=== PATIENT | male | born 1950 | race Caucasian/White ===

== ENCOUNTER 2020-04-24 09:16 | Inpatient (IN) | payer MEDICARE ==
[~2020-04-24] VITALS: Ht 175.3 cm; Wt 72.0 kg
--- NOTE | 2020-04-24 12:37 | EKG ---
[facility] [address] [facility] [place] [address] Signed Sinus rhythm with marked sinus arrhythmia with 1st degree AV block with premature ventricular complexes or fusion complexes Inferior infarct , age undetermined Marked ST abnormality, possible anterolateral subendocardial injury Abnormal ECG No previous ECGs available Confirmed by HEATH BERTRAND MD ([id number]) on 04/24/2020 12:37:22 PM Electronically Signed By: HEATH BERTRAND MD 04/24/20 1237 PATIENT NAME: ALEXNADRIA POLLOCK Electrocardiogram DATE OF : 46 PHYSICIAN: HEATH BERTRAND MD REPORT #: [id number] REPORT IS CONFIDENTIAL AND NOT TO BE RELEASED WITHOUT AUTHORIZATION
[2020-04-24] MEDS ORDERED: GLUCOPHAGE500 MG PO (14:04)
[2020-04-24] MEDS ORDERED: TRAZODONE HCL100 MG PO (14:04)
[2020-04-24] MEDS ORDERED: DEPAKOTE125 MG PO (14:05)
[2020-04-24] MEDS ORDERED: KLOR-CON M1010 MEQ PO (14:05)
[2020-04-24] MEDS ORDERED: ABILIFY5 MG PO (14:06)
[2020-04-24] MEDS ORDERED: DIGOX125 MCG PO (14:06)
[2020-04-24] MEDS ORDERED: LOPRESSOR HCT1 EAC1 PO (14:07)
[2020-04-24] MEDS ORDERED: METOPROLOL SUCC50 MG PO (14:07)
[2020-04-24] MEDS ORDERED: MORPHINE SULFAT15 M1 PO (14:07)
[2020-04-24] MEDS ORDERED: LASIX80 MG PO (14:08)
[2020-04-24] MEDS ORDERED: ISOSORBIDE MONO30 MG PO (14:08)
[2020-04-24] MEDS ORDERED: XANAX1 MG PO (14:09)
[2020-04-24] MEDS ORDERED: JANTOVEN4 MG PO (14:09)
[2020-04-24] MEDS ORDERED: DIGITEK250 MCG PO (14:09)
[2020-04-24] MEDS ORDERED: RA P-COL RITE1 EACH PO (14:10)
[2020-04-24] MEDS ORDERED: PRAVACHOL20 MG PO (14:10)
[2020-04-24] MEDS ORDERED: TESTOSTERO200 MG/1 M IM (15:28)
[2020-04-24] MEDS ORDERED: MIRTAZAPINE30 M1 PO ×2 (15:31→16:45)
[2020-04-24] MEDS ORDERED: DEXAMETHASONE0.5 MG PO (15:31)
--- NOTE | 2020-04-24 15:55 | NUR ---
PATIENT ARRIVED TO [facility] VIA WHEELCHAIR. PATIENT IMMEDIATELY AMBULATED TO BATHROOM WITH STANDBY ASSIST TO VOID.
[2020-04-24] MEDS ORDERED: METOLAZONE5 MG PO (16:44)
--- NOTE | 2020-04-24 17:17 | NUR ---
PATIENT ADMITTED TO MED SURG. PATIENT IS SLEEPING, IVF INFUSING, ENEMA PENDING. DAUGHTER IN ROOM WITH PATIENT.
--- NOTE | 2020-04-24 17:47 | NUR ---
PHARMACY IN TO TALK WITH DAUGHTER AND PATIENT.
--- NOTE | 2020-04-24 18:05 | NUR ---
ENEMA GIVEN, APPROXIMATELY 1/2 OF THE FLEET BOTTLE INSTILLED, THE REMAINDER IMMEDIATELY RAN OUT.
[2020-04-24] MEDS ORDERED: MIRALAX119 GM PO (18:06)
[2020-04-24] MEDS ORDERED: CYANOCOBAL1000 MCG/M IM (18:08)
[2020-04-24] MEDS ORDERED: NITROSTAT0.4 MG SL (18:08)
--- NOTE | 2020-04-24 18:09 | NUR ---
MED REC COMPLETE
[2020-04-24] MEDS ORDERED: MORPHINE IV (18:16)
--- NOTE | 2020-04-24 18:33 | NUR ---
SUPPOSITORY GIVEN. NO FORMED STOOL NOTED AT THE RECTUM.
--- NOTE | 2020-04-24 20:28 | NUR ---
Pt in bed, room air, hob elevated to his comofrt, chin to his chest and haunched back, chronic for him. c/o feeling nauseated, zofran ODT given. On room air sats 42-74 on room air with nose cpox. O2 placed on 2L NC, sats 88%, placed on 3L and stayed at 93-94%, denies sob. chronic cyanotic looking fingers and toes, poor capillary refill. Lungs clear, dim at bases. LE red colored and trace of edema slightly pitting 1+, toenails mycotic, fair, scaly and thickened skin. wearing attends. SL RAC, IVF infusing w/o problems. LAC. family in room.
--- NOTE | 2020-04-24 21:07 | NUR ---
CALL LIGHT ANSWERED. pt INCONTINENT OF STOOL. SBA WITH FWW TO RESTROOM FOR LARGE MIXED STOOL, LIQUID WITH LARGE FORMED PIECES OF STOOL AND VOID. ATTENDS CHANGED. PARTIAL BED BATH COMPLETE WITH WARM WIPES. pt WITH VERY POOR POSTURE, REQUIRING SOME COACHING WITH STAYING WITH WALKER. DAUGHTER AT BEDSIDE. CALL LIGHT IN REACH.
--- NOTE | 2020-04-24 21:45 | NUR ---
PT LORIE AREA FURTHER CLEANED. ASSISTED TO REPOSITION IN BED. PATIENT AND FAMILY NOTIFIED THAT ES WILL COME IN TO MOP FLOOR, AGREEABLE. KENNY OZUNA IN ROOM FOR SCHEDULED MEDICATION ADMINISTRATION.
--- NOTE | 2020-04-24 22:02 | NUR ---
MEDICATIONS ADMINISTERED FOR PRIMARY RN, PT REPOSITIONED IN BED WITH PILLOWS, PT FREQUENTLY ADJUSTING IN BED AND STANDING UP AT BEDSIDE FOR PAIN RELIEF. PT DAUGHTER ASKS THIS RN ABOUT PAIN MEDICATION, THIS RN DISCUSSED WITH PRIMARY RN STEPHEN MITCHELL NOW IN ROOM TO DISCUSS PLAN OF CARE. IVF INFUSING WNL, CALL LIGHT IN REACH, NO OTHER NEEDS AT THIS TIME.
--- NOTE | 2020-04-24 22:46 | NUR ---
DR BERTRAND NOTIFIED VERBALLY ABOUT O2 REQUIREMENTS FOR PT AND OF FAMILY CONCERNS OVER PT BEING ONLY ON TYLENOL AND NOT MORE HEAVY PAIN MEDS AND OF PT HAVING A ALRGE BM. STATED HER CONCERNS OVER NOT BEING ABLE TO GET A HOLD OF A MEDICAL PROVIDER OR PTS FAMILY IN [place]. AND CONCERNS OVER PAIN PUMP NO NEW ORDERS
--- NOTE | 2020-04-24 23:23 | NUR ---
pt w )[address], no distress noted, laying in bed hounchedback position. resting off and on. Many issies r/t pts care discussed with jensenher and pt, mainly pain med, constipation, abnormal labs, pt care after dc, need for past medical records and past medical hx, med, housing and overall care of pt whether pt decides to stay in [place] or back to [place] . Receptive, continue to reinforce current care and why at this time. Pt calm.
--- NOTE | 2020-04-25 00:29 | NUR ---
In bed, hob elevated to sitting position, head bent down to chin as usual, O2 3L NC inplace. calm, quiet, eyes closed, no resp distress. ivf infusing, legs elevated
--- NOTE | 2020-04-25 01:50 | NUR ---
IN BED SITTING POSITION, O2 IN PLACE, EYES CLOSED, NO DISTRESS, IVF INFUSING, NO FURTHER C/O PAIN OR N/V/DRY HEAVING
--- NOTE | 2020-04-25 03:12 | NUR ---
pt standing edge of bed, iv tube pulling. was incontinent of urine, helpwd to br with 1pa/fww, hounshed back slow gait, voided some more, med dark yellow urine, back to bed, tolerated well, sats on retunr on room air nose prong CPOX was 88%, O2 back on at 3L, sats 97-99%, O2 weaned down to 2L NC sats 94-96%. Reposioned back on bed sitting position, pillows on back, helped with repositioning, legs elevated. tolerated fluids well, no further c/o n/v or dry heaving. call light at hands reach.
--- NOTE | 2020-04-25 04:40 | NUR ---
Awakes easily, medicated with tylenol per 8/10 back and generalized pain, stated "Tylenol does not do anything for me". Reposions self in bed, intermittently resting with eyes closed in bed on a sitting position. IVF infusing, O2 2L NC
--- NOTE | 2020-04-25 05:04 | NUR ---
Pt was placed on O2 3L at begining of shift sats 74% on room air. currently on 2L NC sats 94%, nasal probe CPOX use.pt has severe kyphosis and has chronic neck bending w chin touchng chest, walks in a haunched back manner, 1pa/fww. red, warm le scaly, dusky fingers and cyanotic toenail. Has a large bm earlier on shift, incontinent of urine, plus has walked to br , tolerated wel. Has Morphine indwelling pump, chronic pete and generalized pain, takes Tylenol x2 with fair to poor relief. MD aware, Daughter had many concerns r/t pts meds, care and unknown home needs after DC. Reassured and instructed to call CM and senior services for furthre help, stated understanding Dr Chowdhury notified,. IVF infusing w/o problems, tolerating fluids well. Was medicated x1 with zofran per dry heaving, no further episodes.
--- NOTE | 2020-04-25 06:46 | NUR ---
Pt up to chair, 1PA/fww, tolerated well, then up to br, passed large amounts of rectal gas, had smear of bm, voided in toilet and was incontinent of small amount of urine. Back to chair, hob elevated to his comofrt, legs elevated, ivfi infusing, O2 2L NC, tolerated well, no sob, tele#[address], "state that he is ready to go home as nothing is comfortable due to back pain
--- NOTE | 2020-04-25 06:56 | NUR ---
standing up edge of recliner couch, voided in urinal , back to chair, call light and fluids at bedside
--- NOTE | 2020-04-25 07:47 | NUR ---
PATIENT WAS SITTING IN CHAIR BUT NOW TO BED FOR EKG TO BE DONE, 1PA FWW. RT IN ROOM AT THIS TIME TO EKG. CALL LIGHT IN REACH. NO FURTHER NEEDS AT THIS TIME.
--- NOTE | 2020-04-25 07:50 | NUR ---
CALL TO DR. BERTRAND 0740 WITH DIGOXIN AND TROPONIN LAB VALUES. STAT EKG DONE AT 0750.
--- NOTE | 2020-04-25 07:54 | NUR ---
[address] BERTRAND WITH EKG RESULTS, PATIENT DENIES DISCOMFORT AT THIS TIME. NO FURTHER ORDER AT PRESENT.
--- NOTE | 2020-04-25 08:02 | NUR ---
PT AWAKE UP IN CHAIR AT TIME OF REPORT. ELEVATED LAB VALUES REPORTED TO DR BERTRAND PT TO BED FOR EKG ORDERED BY MD. PT DENIES DISCOMFORTS OR NEEDS OF AT THIS TIME. RESTING QUIETLY WITH NO SIGNS OF DISTRESS. CALL LIGHT IN REACH.
--- NOTE | 2020-04-25 09:38 | NUR ---
PATIENT SITTING UP IN BED, RN IN ROOM. PATIENT SLOWLY WORKING ON BREAKFAST. WARM WASHCLOTH GIVEN. CALL LIGHT IN REACH. NO FURTHER NEEDS AT THIS TIME.
--- NOTE | 2020-04-25 09:54 | NUR ---
PT REMOVES 02, VITALS TAKEN. SATS ON RA MID 90'S TO 100% PT TO REMAIN ON RA WILL SPOT CHECK 02 FREQUENTLY
--- NOTE | 2020-04-25 10:43 | NUR ---
PT UP TO THE CHAIR PER REQUEST. SITTING NOW WITHOUT C/O
--- NOTE | 2020-04-25 12:27 | NUR ---
PT UP AMBULATING THE MEZA WITH HIS DAUGHTER.
--- NOTE | 2020-04-25 15:04 | NUR ---
PT PLAYING CARDS WITH HIS DAUGHTER THEN GOES TO WALK AGAIN THEN RETURNS TO THE ROOM TO THE CHAIR
--- NOTE | 2020-04-25 15:35 | NUR ---
PAIN MEDS ADMINISTERED A SHORT TIME AGO PT REPORTS FEELING BETTER ALREADY
--- NOTE | 2020-04-25 18:14 | NUR ---
PATIENT UP TO BATHROOM AND BACK TO CHAIR, 1PA FWW. PATIENT HAD INCONT, SOFT BM. LORIE CARE DONE AND NEW ATTENDS IN PLACE. PATIENT NOW IN CHAIR WATING TV. CALL LIGHT IN REACH. NO FURTHER NEEDS AT THIS TIME.
--- NOTE | 2020-04-25 19:59 | NUR ---
POWER SYSTEM DISPATCHER ROUNDING NOTE. PT RESTING IN CHAIR. IV PUMP ALARMING, EDUCATION PROVIDED. PT ENCOURAGED TO KEEP ARM STRAIGHT, HE AGREES. PT DENIES QUESTIONS OR CONCERNS AT THIS TIME. CALL LIGHT IN REACH. WHITE BOARD UPDATED.
--- NOTE | 2020-04-25 20:31 | NUR ---
pt in chair, stand up to edge of chair, and then sits down. On room air, probe cpox 92%, Lungs much improved from yesterday. Medicated with Oxycontin 15mg po per 5/10 generalized and back pain. Tolerating fluids well, no c/o n/v or dry heaving, sl patent and ivf infusing
--- NOTE | 2020-04-25 21:39 | EKG ---
[facility] [address] [place] [address] \T\ T wave abnormality, consider inferior ischemia Abnormal ECG When compared with ECG of 24-APR-2020 10:21, Atrial fibrillation has replaced Sinus rhythm ST less depressed in Anterior leads T wave inversion less evident in Anterolateral leads QT has shortened Confirmed by HEATH BERTRAND MD ([id number]) on 04/25/2020 9:38:51 PM Electronically Signed By: HEATH BERTRAND MD 04/25/20 2139 PATIENT NAME: ALEXANDRIA POLLOCK Electrocardiogram DATE OF : 46 PHYSICIAN: HEATH BERTRAND MD REPORT #: [id number] REPORT IS CONFIDENTIAL AND NOT TO BE RELEASED WITHOUT AUTHORIZATION
--- NOTE | 2020-04-25 22:33 | NUR ---
In recliner chair, "Kory as comfortable as I can be", repositions self in chair., IVF infusing. call light at bedside
--- NOTE | 2020-04-26 00:27 | NUR ---
Sitting in chair, dozing off, stand up to edge of chair and then sits down. repositions self. no further episodes of n/v or dry heaving. ivf infusing, call light at bedside, on room air. erythema of LE still present
--- NOTE | 2020-04-26 02:29 | NUR ---
PT EYES CLOSED, NO RESP DISTRESS, IN RECLINER CHAIR, CHIN TO CHEST. LEGS IN DEPENDENT POSITION, WARM AND RED. IVF INFUSING, TOLERATING FLUIDS WELL, NO N/V, HAS VOIDED USING URINAL.
--- NOTE | 2020-04-26 06:10 | NUR ---
Pt in recliner chair, naps off and on this shift. stands edge of recliner chair and then sits down very frequently this shift. still walking on haunchedback like, chin to chest . Tolerating fluids very well, no emesis. On room air, had one small bm, uses urinal, and was incontinent of urine x1, skin care done. duskiness of fingers and toes present, mycotic toenails, red warmth le, edema at ankles, legs have been on a dependent posion all shift, encouraged to elevaste legs. has been receiving MS contin with fair pain relief, due to chronic back and generalized pain. ivf infusing w/o problems, no c/o adversereaction to iv abx, receiving iv solucortef. Mind [place] Tele#[address], afib w occassional multifor PVC's, no c/o cp or sob.
--- NOTE | 2020-04-26 07:46 | NUR ---
PT RESTING EYES CLOSED AT TIME OF SHIFT EXCHANGE. UP IN THE CHAIR NOW WASHING HIS FACE, PERSONAL CARE ITEMS PROVIDED. PT RESPOPNDS "PRETTY GOOD" WHEN ASKED HOW HIS PAIN LEVEL IS. GIVES NUMBER OF 7/10 STATES IT NEVER GOES AWAY BUT IS BETTER TODAY. CALL LIGHT IN REACH FRESH H20 PROVIDED
--- NOTE | 2020-04-26 09:52 | NUR ---
PT UP IN THE CHAIR AFTER CLEAR LIQUID BREAKFAST. WOUND WASH TO OPEN AREAS ON BOTTOM, BARRIER CREAM APPLIED. PT EDUCATION PROVIDED AT LENGTH PT VERBALIZES UNDERSTANDING AND AGREES DAUGHTER CAN ASSIST HIM HE CAN'T REACH TO WASH LIKE THAT. DR BERTRAND IN TO SEE PT HE DENIES NEEDS OR CONCERNS STATES HE WANTS TO GO HOME. SHE REPORTS LAB IMPROVEMENTS AND LIKELIHOOD OF DC TOMORROW.
--- NOTE | 2020-04-26 10:01 | NUR ---
PATIENT IN CHAIR WATCHING TV. WARM WASHCLOTH GIVEN. ADVANCED PATIENTS DIET, BREAKFAST ORDERED. CALL LIGHT IN REACH. NO FURTHER NEEDS AT THIS TIME.
--- NOTE | 2020-04-26 11:56 | NUR ---
PT REMAINS UP IN THE CHAIR, STANDS INTERMITTANTLY FOR COMFORT. FAMILY IN TO SEE HIM EARLIER. CALL LIGHT AND FRESH H20 AT CHAIRSIDE DENIES OTHER NEES OF
--- NOTE | 2020-04-26 13:44 | NUR ---
PT REMAINS UP IN THE CHAIR, DAUGHTER IS PRESENT. UPDATE PROVIDED R/T CONDITION AND PLAN OF CARE. SHE REMARKS HOW MUCH BETTER PT APPEARS TODAY
--- NOTE | 2020-04-26 14:30 | NUR ---
DEMONSTRATED FOR DAUGHTER HOW TO WASH PT'S BOTTOM WITH WOUND WASH SPRAY BOTTLE. DISCUSSED THE NEED FOR UNDERGARMENT CHANGES AND BARRIER CREAM TO PREVENT WORSENING OF WOUND. ALL QUESTIONS ANSWERED
--- NOTE | 2020-04-26 14:53 | NUR ---
PATIENT WAS UP IN CHAIR, DAUGHTER IN ROOM, PATIEINT WENT ON A WALK AMBULATED ABOUT A HALF OF A LAP, PATIENT CAME BACK TO ROOM, ORDERED HIS DINNER, AND VITAL SIGNS AND INTAKE AND OUTPUT WERE CHARTED, CALL LIGHT IN REACH, PATIENT HAD NO OTHER NEEDS AT THIS TIME.
--- NOTE | 2020-04-26 14:54 | NUR ---
PT AMBULATES THE MEZA WITH DAUGHTER WELL TOLERATED
--- NOTE | 2020-04-26 18:16 | NUR ---
PT REMAINS UP IN THE CHAIR VISITING WITH DAUGHTER. HAS WALKED THE HALLS SEVERAL TIMES, STANDS FOR A TIME RETURNS TO SITTING. ATE VERY LITTLE OF EVENING MEAL REFUSES OFFERS OF ALTERNATIVES.
--- NOTE | 2020-04-26 18:59 | NUR ---
PATIENT IN CHAIR, DAUGHTER IN ROOM. CALL LIGHT IN REACH. NO FURTHER NEEDS AT THIS TIME.
--- NOTE | 2020-04-26 19:41 | NUR ---
PT IN CHAIR, LEGS DEPENDENT POSITION. ROOM AIR, IVF INFUSING, FAMILY IN ROOM
--- NOTE | 2020-04-26 23:27 | NUR ---
In chair, denies sob, states he feels better, IVF infusing, call light and fluids at bedside. Continues to stand at edge of chair and back, repositions self
--- NOTE | 2020-04-27 00:57 | NUR ---
UP TO BED FROM CHAIR. IVF INFUSING, TOLERATED WELL, INCONTINENT OF URINE, SKIN CARE FRESH ATTENDS IN PLACE, MUCH IMPROVING ERYTHEMA AND REDNESS OF LE, ELEVATED. CALL LIGHT AND FLUID AT BEDSIDE
--- NOTE | 2020-04-27 01:42 | NUR ---
IN BED, ON ROOM AIR, LAYING ON L SIDE, CALM, NO S/SX DISTRESS. CALL LIGHT AND FLUIDS AT BEDSIDE. IVF INFUSING
--- NOTE | 2020-04-27 02:11 | NUR ---
PT IN BED, HOB ELEVATED. C/O HEAD FEELING DIZZY, AND BACK PAIN, MEDICATED WITH TYLENOL 650MG PO AND ZOFRAN SL. IVF INFUSING
--- NOTE | 2020-04-27 04:03 | NUR ---
uSED CALL LIGHT, IN BED, UP TO BR, VOIDED, PASSED GAS, NO BM. UP TO STANDING SCALE, WEIGHT 77.7KG, APPEARS TO HAVE GAINED 1KG. bACK TO BED, 1PA/FWW. IVF INFUSING, NO SOB NOTED, TOLERATED VERY WELL
--- NOTE | 2020-04-27 07:27 | NUR ---
PT RESTING EYES CLOSED AT SHIFT EXCHANGE, LEFT UNDISTURBED.
--- NOTE | 2020-04-27 08:12 | NUR ---
PT UP TO THE CHAIR AND MORNING MEAL ORDERED. STATES HE FEELS WELL TODAY, HOPES TO GO HOME. PLANS FOR SHOWER AFTER MORNING MEAL
--- NOTE | 2020-04-27 09:03 | NUR ---
REQUESTED RECORDS BASED OFF OF THE PATIENTS MEDICATION LIST OF PROVIDERS. DR CARLIN IS AT A [facility] PHONE NUMBER IS [phone] AND FAX [phone]. DR RON ECHAVARRIA HAS SEEN THE PATIENT THREE TIMES THIS YEAR. HIS PHONE NUMBER IS [phone] AND FAX NUMBER IS [phone].
--- NOTE | 2020-04-27 10:29 | NUR ---
RN HELPED PATIENT WITH SHOWER. PATIENT NOW IN CHAIR, RN STILL IN ROOM. NO VOID, RN AWARE. CALL LIGHT IN REACH. NO FURTHER NEEDS AT THIS TIME.
--- NOTE | 2020-04-27 10:37 | NUR ---
PT EATS A FAIR AMOUNT OF MORING MEAL, BEST HE'S EATEN SINCE FOODS WERE ENCOURAGED. PT TO THE BATHRROM FOR SHOWER AND PERSONAL CARE, WELL TOLERATED. REINFORCED SKIN CARE NEEDS FOR CLEANSING, BARRIER CREAM, AND PRESSURE RELIEF. PT VERBALIZES UNDERSTANDING. RETURNS TO CHAIR TALKING ON THE PHONE NOW.
[2020-04-27] MEDS ORDERED: MELATONIN10 M2 PO (11:24)
--- NOTE | 2020-04-27 12:24 | NUR ---
PT DAUGHTER HERE HE REMAINS UP IN THE CHAIR EATING NOON MEAL
--- NOTE | 2020-04-27 13:43 | NUR ---
YUE RN WITH D/C PLANNING CALLED TO NOTIFY THAT PT AND FAMILY WOULD LIKE TO DISCUSS RESOURCES AVAILABLE TO THEM IN THE COMMUNITY HE IS PLANNING TO MOVE HERE.
[2020-04-27] MEDS ORDERED: WARFARIN SODIUM1 MG PO (13:58)
--- NOTE | 2020-04-27 13:59 | NUR ---
DR BERTRAND IN TO SEE PT, DAUGHTER IS PRESENT. SPOKE AT LENGTH REGARDING PT MEDICAL CONDITION AND NEED FOR BOTH F/U AND MONITORING. UNDERSTANDING VERBALIZED. DC MACHINE REPAIRER SPEAKING WITH PT AND DAUGHTER NOW TO ASSIST WITH MEDICAL NEEDS
--- NOTE | 2020-04-27 15:00 | NUR ---
SPOKE WITH PATIENT AND DAUGHTER LENNY IN ROOM. PATIENT FLEW UP TO VISIT FAMILY BEFORE THANKSGIVING. HE LIVES IN [place] ALONE. HE HAS SISTER LIVES NEXT DOOR TO HIM AND SHE HELPS WITH MEDS, SHOPPING ETC. HE HAS PCP AND SPECIALITY DOCTORS THERE. DAUGHTER STATES THEY FEEL HE NEEDS MORE SUPPORT NOW AND HE STATES HE IS THINKING OF MOVING HERE. THEY HAVE QUESTIONS REGARDING WHAT HE WOULD NEED TO DO TO FIND RESOURCES HERE. DISCUSSED I WILL GIVE THEM CHW CONTACT INFO FOR THEM TO CALL IF HE DECIDES TO STAY HERE. I SUGGESTED THE FIRST THING THEY DO IS FIND A PCP HE HAS MANY HEALTH CHALLENGES. I GAVE THEM NAMES AND CONTACT NUMBERS FOR THREE CLINICS IN [facility] WHO ARE ACCEPTING NEW PATIENTS. DAUGHTER STATES SHE HAS A PSEICE-DM-SIW WHO WORKS AT [facility] AND THEY ALSO HEARD DR SARABIA WAS GOOD. I DISCUSSED THAT WHEN THEY DECIDE WHO TO USE, THEY WILL NEED TO GET PATIENTS RECORDS FROM [place] SO NEW PCP WOULD HAVE HIS HISTORY. WE DISCUSSED THAT HOUSING IN [place] CAN BE A CHALLENGE. PATIENT LIVES ON FIXED INCOME. DAUGHTER STATES HE PROBABLY WILL NEED PRISON HOUSING OR LOW INCOME HOUSING. SHE PLANS ON HIS STAYING WITH HER FOR NOW. PATIENT STATES HE MAY FLY HOME FIRST HE NEEDS TO GET HIS CAR AND THINGS. THEY WENT BACK AND FORTH ABOUT THIS. GAVE THEM OUR OFFICE CONTACT NUMBER AND ENCOURAGED THEM TO CALL OUR CHW OR OFFICE WHEN THEY DECIDE WHEN HE WILL BE HERE PERMAMENTLY AND WE CAN HELP GUIDE THEM WITH RESOURCES. PATIENT PLANS TO RETURN HOME WITH DAUGHTER TODAY AT DISCHARGE AND HE HAS A WALKER THERE TO USE. HE FEELS SAFE TO GO HOME WITH THEM. WE DISCUSSED THAT HE WILL NEED REFERRAL TO A PAIN CLINIC TO DEAL WITH HIS CHRONIC PAIN. WE DISCUSSED THERE IS ONE IN [facility]. DAUGHTER STATES THAT SHOULD WORK, THEY CAN TAKE HIM IF NEEDED. NO FURTHER QUESTIONS AT THIS TIME.
== END 2020-04-27 15:20 | disposition home or self-care (01) | DRG 683 ==
LOC: ED 09:16 → MS 15:16
PROVIDERS: ADMIT Internal Medicine; ATTEND Internal Medicine
DX: N17.9 Acute kidney failure, unspecified (principal); L03.116 Cellulitis of left lower limb; L03.115 Cellulitis of right lower limb; E27.40 Unspecified adrenocortical insufficiency; E87.6 Hypokalemia; Z20.828 Contact with and (suspected) exposure to other viral communicable diseases; T46.0X5A Adverse effect of cardiac-stimulant glycosides and drugs of similar action, initial encounter; I48.91 Unspecified atrial fibrillation; I50.9 Heart failure, unspecified; E86.0 Dehydration; M54.5 Low back pain; G89.29 Other chronic pain; K56.41 Fecal impaction; F31.9 Bipolar disorder, unspecified; Z87.891 Personal history of nicotine dependence; Z79.899 Other long term (current) drug therapy; Z79.01 Long term (current) use of anticoagulants; Z79.84 Long term (current) use of oral hypoglycemic drugs; Z79.891 Long term (current) use of opiate analgesic; Z79.52 Long term (current) use of systemic steroids
CPT/HCPCS: 36415; 51798; 71045; 74177; 80048; 80053; 80162; 81001; 83605; 83690; 83735; 83880; 84100; 84484; 85025; 85610; 93005; 93010; 99285-25; C9113; C9803; J0690; J1720; J1815; J2270; J2405; J2550; J2765; J3480; J7030; J7120; Q9967; U0003

== ENCOUNTER 2020-10-21 16:46 | Emergency (ER) | payer MEDICARE ==
[~2020-10-21] VITALS: Ht 175.3 cm; Wt 77.6 kg
[~2020-10-21 16:46] MED LIST: ABILIFY10 MG PO; CYANOCOBAL1000 MCG/M IM; DEPAKOTE125 MG PO; DEXAMETHASONE0.5 MG PO; DIGITEK250 MCG PO; DIGOX125 MCG PO; FUROSEMIDE20 MG PO; GLUCOPHAGE500 MG PO; ISOSORBIDE MONO30 MG PO; JANTOVEN4 MG PO; KLOR-CON M1010 MEQ PO; LASIX80 MG PO; LOPRESSOR HCT1 EAC1 PO; MELATONIN10 M2 PO; METOLAZONE5 MG PO; METOPROLOL SUCC50 MG PO; MIRALAX119 GM PO; MIRTAZAPINE30 M1 PO; MORPHINE IV; MORPHINE SULFAT15 M1 PO; NITROSTAT0.4 MG SL; PRAVACHOL20 MG PO; RA P-COL RITE1 EACH PO; TESTOSTERO200 MG/1 M IM; TRAZODONE HCL100 MG PO; VALIUM10 MG PO; WARFARIN SODIUM1 MG PO; WARFARIN SODIUM4 MG PO
--- OUTSIDE RECORDS SUMMARY | 2020-10-21 16:48 | XMS ---
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 Nadir has no Care Guidelines for this patient. Daphney VISIT COUNT (12 MO.) 2 AMARJIT Tomas TOTAL 2 NOTE: Visits indicate total known visits. ED/C VISIT TRACKING (12 MO.) 10/21/2020 16:46 AMARJIT [facility] [place] TYPE: Emergency COMPLAINT: - WOUND CHECK 04/24/2020 09:17 [facility] TYPE: Emergency COMPLAINT: - WEAKNESS, VOMITING INPATIENT VISIT TRACKING (12 MO.) 04/24/2020 15:16 AMARJIT [facility] [place] TYPE: Medical Surgical COMPLAINT: - HYPOKALEMIA CONSTIPATION DIAGNOSES: - Cellulitis of left lower limb - Unspecified adrenocortical insufficiency - Fecal impaction - Adverse effect of cardiac-stimulant glycosides and drugs of similar action, initial encounter - Cellulitis of left lower limb - Hypokalemia - Adverse effect of cardiac-stimulant glycosides and drugs of similar action, initial encounter - Fecal impaction - Dehydration - Contact with and (suspected) exposure to other viral communicable diseases - Cellulitis of right lower limb - Bipolar disorder, unspecified - Other manager special events (current) drug therapy - 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 - Other chronic pain - Personal history of nicotine dependence - FDC (current) use of anticoagulants - FDC (current) use of oral hypoglycemic drugs - Other chronic pain - Personal history of nicotine dependence - Low back pain - Bipolar disorder, unspecified - Heart failure, unspecified - FDC (current) use of systemic steroids - Contact with and (suspected) exposure to other viral communicable diseases - Cellulitis of right lower limb - Other shelter (current) drug therapy - Acute kidney failure, unspecified - Heart failure, unspecified - Unspecified atrial fibrillation - Low back pain - Dehydration - business machines teacher (current) use of systemic steroids - Unspecified adrenocortical insufficiency - business machines teacher (current) use of anticoagulants - Acute kidney failure, unspecified - Unspecified atrial fibrillation - business machines teacher (current) use of oral hypoglycemic drugs - 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
[2020-10-21] MEDS ORDERED: CEPHALEXIN500 M1 PO (18:54)
--- NOTE | 2020-10-22 07:02 | EKG ---
[facility] [address] [place] [address] Signed Atrial fibrillation with rapid ventricular response Cannot rule out Anterior infarct , age undetermined Abnormal ECG When compared with ECG of 25-APR-2020 07:38, Vent. rate has increased BY 68 BPM QRS duration has decreased Minimal criteria for Anterior infarct are now present ST no longer depressed in Lateral leads T wave inversion no longer evident in Inferior leads T wave inversion no longer evident in Anterior leads Confirmed by HEATH BERTRAND MD ([id number]) on 10/22/2020 7:02:37 AM Electronically Signed By: HEATH BERTRAND MD 10/22/20701 PATIENT NAME: ALEXANDRIA POLLOCK Electrocardiogram DATE OF : 46 PHYSICIAN: HEATH BERTRAND MD REPORT #: [id number] REPORT IS CONFIDENTIAL AND NOT TO BE RELEASED WITHOUT AUTHORIZATION
== END 2020-10-21 20:20 | disposition home or self-care (01) ==
LOC: ED 16:46
DX: L03.116 Cellulitis of left lower limb (principal); I48.91 Unspecified atrial fibrillation; Z87.891 Personal history of nicotine dependence; Z91.030 Bee allergy status; Z79.899 Other long term (current) drug therapy; Z79.01 Long term (current) use of anticoagulants; Z79.84 Long term (current) use of oral hypoglycemic drugs; Z79.891 Long term (current) use of opiate analgesic
CPT/HCPCS: 80053; 83605; 85025; 85610; 93005; 93010; 96374; 99283-25

== ENCOUNTER 2021-01-05 15:41 | Inpatient (IN) | payer MEDICARE ==
[~2021-01-05] VITALS: Ht 175.3 cm; Wt 81.0 kg
[~2021-01-05 15:41] MED LIST changes: +CEPHALEXIN500 M1 PO; -PRAVACHOL20 MG PO; +PRAVASTATIN SOD20 MG PO; +REMERON30 MG PO
--- OUTSIDE RECORDS SUMMARY | 2021-01-05 15:44 | XMS ---
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 Daphney VISIT COUNT (12 MO.) 3 AMARJIT Tomas TOTAL 3 NOTE: Visits indicate total known visits. ED/UCC VISIT TRACKING (12 MO.) 01/05/2021 15:41 AMARJIT [facility] [place] TYPE: Emergency COMPLAINT: - WEAKNESS 10/21/2020 16:46 AMARJIT [facility] [place] TYPE: Emergency COMPLAINT: - CELLULITIS DIAGNOSES: - [facility] (current) use of opiate analgesic - Other terminologist (current) drug therapy - Bee allergy status - Unspecified atrial fibrillation - Personal history of nicotine dependence - Cellulitis of left lower limb - [facility] (current) use of anticoagulants - terminologist (current) use of oral hypoglycemic drugs 04/24/2020 09:17 AMARJIT [facility] [place] TYPE: Emergency [...] limb - Bipolar disorder, unspecified - Other long-term (current) drug therapy - terminologist (current) use of opiate analgesic - Other chronic pain - Personal history of nicotine dependence - terminologist (current) use of anticoagulants - terminologist (current) use of oral hypoglycemic drugs - Other chronic pain - Personal history of nicotine dependence - Low back pain - Bipolar disorder, unspecified - Heart failure, unspecified - [facility] (current) use of systemic steroids - Contact with and (suspected) exposure to other viral communicable diseases - Cellulitis of right lower limb - Other terminologist (current) drug therapy - Acute kidney failure, unspecified - Heart failure, unspecified - Unspecified atrial fibrillation - Low back pain - Dehydration - terminologist (current) use of systemic steroids - Unspecified adrenocortical insufficiency - [facility] (current) use of anticoagulants - Acute kidney failure, unspecified - Unspecified atrial fibrillation - terminologist (current) use of oral hypoglycemic drugs - terminologist (current) use of opiate analgesic [email or web address]
[2021-01-05] MEDS ORDERED: HYDROMORPHO (18:29)
[2021-01-05] MEDS ORDERED: FENTANYL (18:29)
--- NOTE | 2021-01-05 20:23 | NUR ---
PT TRANSFERED TO CCU NO COMPLICATIONS
--- NOTE | 2021-01-05 20:38 | EKG ---
[facility] [address] [place] [address] Signed Atrial fibrillation with rapid ventricular response Abnormal ECG When compared with ECG of 21-OCT-2020 17:16, No significant change was found Confirmed by HEATH BERTRAND MD ([id number]) on 01/05/2021 8:38:19 PM Electronically Signed By: HEATH BERTRAND MD 01/05/212037 PATIENT NAME: POLLOCK,ALEXANDRIADWAIN SPANN Electrocardiogram DATE OF : 46 PHYSICIAN: HEATH BERTRAND MD REPORT #: [id number] REPORT IS CONFIDENTIAL AND NOT TO BE RELEASED WITHOUT AUTHORIZATION
--- NOTE | 2021-01-05 21:00 | NUR ---
PT ARRIVED TO ROOM 128 AT 2000 VIA STRETCHER, MOVED TO BED BY DRAW SHEET. PT IS SOMNOLENT, OPENS EYES TO VOICE AND QUICKLY GOES BACK TO SLEEP. LUNGS COARSE AND DIM, BIPAP PLACE ON PT AT 18/4 @50%. HR IRREGULAR, RATE 80-90'S, MADE AWARE OF LOW BP. MORRIS PATENT, CATH CARE PROVIDED. SKIN IS ERA, OPEN AREA TO COCCYX, BARRIER CREAM APPLIED AND OPEN AREA COVERED WITH ALLEVYN, REDNESS TO COCCYX DOES NOT APPEAR TO BE BLANCHING, PT POSITIONED ONTO RIGHT SIDE. PILLOW SUPPORT PROVIDED PT'S SPINE IS KYPHOTIC. REDNESS ALSO NOTED TO GROIN FOLDS, BARRIER CREAM APPLIED. IV SITES INTACT AND PATENT.
--- NOTE | 2021-01-05 23:15 | NUR ---
PT REPOSITIONED TO LEFT SIDE WITH PILLOW SUPPORT. BIPAP REMAINS IN PLACE 23/08 @ 50%. MORRIS EMPTIED. PT REMAINS SOMNOLENT AT THIS TIME.
--- NOTE | 2021-01-06 | NUR ---
BIPAP ALARMING, IN TO ASSESS. PT IS NOW AWAKE AND HAS REMOVED BIPAP. HE IS ORIENTED, BUT FORGETFUL OF DATE. REPORTS 8/10 BACK PAIN, 2MG IV MORPHINE GIVEN AND PT REPOSITIONED IN BED PER REQUEST. LUNGS DIM WITH CRACKLES NOTED, NOW ON 2L O2 VIA NC. HR IRREGULAR, RATE 110-120'S, BP GREATLY IMPROVED NOW THAT PT IS ALERT, SCHEDULED METOPROLOL GIVEN EARLY PREVIOUS DOSE HAD TO BE HELD. BOWEL TONES ACTIVE, DENIES NAUSEA. PERIORBITAL EDEMA UNCHANGED, 1-2+ EDEMA IN BLE. MORRIS PATENT. PT UNCOVERED PER REQUEST, AFEBRILE. DENIES FURTHER NEEDS, CALL LIGHT WITHIN REACH.
--- NOTE | 2021-01-06 02:58 | NUR ---
CB, NO SLIDING SCALE COVERAGE REQUIRED AT THIS TIME. PT HAS REPOSITIONED HIMSELF SUPINE FROM SIDE LYING AND IS CURRENTLY ASLEEP. OXYGEN INCREASED TO 4L FOR SPO2 89%. MORRIS EMPTIED.
--- NOTE | 2021-01-06 04:30 | NUR ---
PT WAS DESATURATING TO 86-88%, IN TO CHECK ON HIM AND NC HAD COME OUT OF NOSE, ONCE BACK IN CORRECT PLACE, SPO2 QUICKLY RETURNED >90%. PT REMAINS ROUSABLE AND IS ORIENTED AT THIS TIME. REPORTS 8/10 BACK AND HEADACHE PAIN, 4MG IV MORPHINE GIVEN. PT REPOSITIONED FURTER ONTO RIGHT SIDE WITH PILLOW SUPPORT. LUNGS SOUND DIM AT THIS TIME, NO CRACKLES HEARD. HR REMAINS IRREGULAR, RATE IN 90'S. MORRIS REMAINS PATENT. NO OTHER CHANGES, PT DENIES FURTHER NEEDS, CALL LIGHT WITHIN REACH.
--- NOTE | 2021-01-06 06:58 | NUR ---
DR. BERTRAND NOTIFIED OF CRITICAL LAB VALUE, PROTIME:40.6
--- NOTE | 2021-01-06 07:30 | NUR ---
REPORT RECIEVED. IS LAYING ON BACK. CURRENTLY ON O2 AT 2 L NC.NO DISTESS NOTED.
--- NOTE | 2021-01-06 08:30 | NUR ---
RT IN ROOM, BIPAP REAPPLIED PATIENT IS LETHARIC. WILL FOLLOW MOST COMMANDS. ASSSSMENT DONE. MORRIS CATH PATENT.
--- NOTE | 2021-01-06 08:31 | NUR ---
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 PLACED BACK ON BIAP AT THIS TIME INÉS WELL WOB OK.
--- NOTE | 2021-01-06 08:45 | NUR ---
DRAW SHEET CHANGED AND PATIENT REPOSITIONED.
--- NOTE | 2021-01-06 09:30 | NUR ---
DR. BERTRAND UPDATED ON PATIENT BP AND AWARE IAN AND MICHELL HELD THIS AM. NO FUTHER ORDERS.
--- NOTE | 2021-01-06 10:40 | NUR ---
repositioned to left side. PATIENT IS MUCH MORE AWAKE. BIPAP OFF.O2 AT 3 L NC APPLIED WITH CO2 MONITORING. C/O BACK PAIN, 11/14. ASSESSMENT DONE AT THIS TIME. PATIENT STATED HE FEELS GOOD AND WANTS TO GO HOME. TALKED WITH PAIENT ABOUT THIS.
--- NOTE | 2021-01-06 11:10 | NUR ---
MORPHINE 4 MG IV GIVEN FOR BACK PAIN.
[2021-01-06] MEDS ORDERED: CLONIDINE HCL0.1 MG PO (12:00)
--- NOTE | 2021-01-06 12:20 | NUR ---
ASSESSMENT DONE. NO CHANGES. OFF BIPAP, ON 3 L NC. IS AWAKE AND FOLLOWING COMMANDS. ORAL CARE GIVEN.
--- NOTE | 2021-01-06 13:20 | NUR ---
BIPAP REAPPLIED, SATS 86-89.
--- NOTE | 2021-01-06 14:45 | NUR ---
2PA TO REPOSITION PATIENT. MORRIS EMPTIED, ORAL CARE PROVIDED. BIPAP REPLACED BY 3LNC PER PATIENT REQUEST.
--- NOTE | 2021-01-06 15:00 | NUR ---
Attempted to call sisterSONIA, phone number is a nonworking number. Obtained information from nurses as they state family members are home sick with covid. Per H&P pt has had mutiple back surgeries and uses a walker. He has an implanted pain pump, CHF, and edema. Daughter assists with meds. I was able to reach his sister SONIA Remy. Pt moved to [place] with his daughter over a year ago as he was unable to care for self. Daughter assists with meds and care. Per sister pt requires substantial care. Pt will return home with daughter on discharge.
--- NOTE | 2021-01-06 15:10 | NUR ---
IN ROOM TO CHECK BS AND ADMINISTER SCHEDULED MEDS. PT AWAKE AND ALERT. ABLE TO SWALLOW SIPS OF WATER AND SOME APPLESAUCE WO DIFF.
--- NOTE | 2021-01-06 15:30 | NUR ---
OOB TO CHAIR WITH ASSIST, TRANSFERS WELL. DENIES DIZZINESS OR SHORTNESS OF BREATH WITH EXERTION.
--- NOTE | 2021-01-06 16:00 | NUR ---
ASSESSMENT DONE. O2 AT 4 L PER NC.
--- NOTE | 2021-01-06 16:08 | NUR ---
ASSESSMENT DONE. OOB TO CHAIR WITH ASSIST. TAKES NC OUT TO WIPE NOSE. O2 SZTS DOWN TO 83-90. DENIES SHORTNESS OF BREATH.
--- NOTE | 2021-01-06 17:45 | NUR ---
sitting up in chair ready to take clear liquids. O2 INCREASED TO 5 L O2 SATS MID 80'S ON 4 LITERS.
--- NOTE | 2021-01-06 18:20 | NUR ---
TOOK CL LIQUIDS WELL. WISHES TO REMAIN IN CHAIR. O2 INCREASED TO 6 L NC O2 SATS, HIGH 80'S. PATIENT DENIES SHORTNESS OF BREATH. HR 120-130. WILL NOTIFY
--- NOTE | 2021-01-06 18:45 | NUR ---
DR. BERTRAND UPDATED ON PATIENT HR. ORDERS RECIEVED TO GIVE 2000 DOSE OF LOPRESSOR 5 MG IV NOW. UPON ENTERING ROOM, PATIENT IS ATTEMPTING TO GET OOB TO BATHROOM, INCONT OF STOOL. ASSISTED TO COMMODE. LOPRESSOR 5 MG IV GIVEN.
--- NOTE | 2021-01-06 19:05 | NUR ---
CONTINUES TO SIT ON COMMODE. HR 102.
--- NOTE | 2021-01-06 20:30 | NUR ---
SHIFT REPORT RECEIVED FROM KENNY GRAF. 6L O2 VIA NC IN PLACE. PT UP TO BSC WITH LYNETTE SAVAGE TO HAVE BM. RETURNED TO BED.
--- NOTE | 2021-01-06 21:40 | NUR ---
ASSESSMENT COMPLETED. PT IS ALERT/ORIENTED, REPORTS 8/10 BACK AND HEADACHE PAIN, PRN MORPHINE GIVEN. LUGNS DIM, 6L O2 VIA NC IN PLACE. HR IRREGULAR, RATE 100-120'S. BOWEL TONES ACTIVE. SKIN IS ERA WITH EDEMA PRESENT. REDNESS TO COCCYX REMAINS, ALLEVYN REMOVED AFTER BEING SOILED. MORRIS PATENT, CATH CARE PROVIDED. IV SITES PATENT AND SALINE LOCKED. BED ALARM SET FOR SAFETY, CALL LIGHT WITHIN REACH.
--- NOTE | 2021-01-06 23:18 | NUR ---
DR. BERTRAND NOTIFIED OF PT'S INCREASED HR: 120-140, OCCASIONALLY UP TO 150. ORDER RECEIVED FOR ONE TIME DOSE OF 5MG IV METOPROLOL, GIVEN NOW. PT REPORTS FEELING COMFORTABLE. MORRIS EMPTIED.
--- NOTE | 2021-01-07 00:30 | NUR ---
ASSESSMENT COMPLETED, UNCHANGED AT THIS TIME. REMAINS ON 6L O2 VIA NC, LUNGS REMAIN DIM. PT POSITIONED ONTO LEFT SIDE WITH PILLOW SUPPORT. MORRIS EMPTIED. PT STATES HE IS COMFORTABLE, DENIES FURTHER NEEDS AT THIS TIME.
--- NOTE | 2021-01-07 02:52 | NUR ---
PT CONTINUES TO SLEEP, NO APPARENT DISTRESS. OXYGEN REMAINS IN PLACE AT 6L. MORRIS PATENT AND EMPTIED. PT REPOSITIONED SELF TO SUPINE IN BED.
--- NOTE | 2021-01-07 04:37 | NUR ---
PT APPEARS TO BE SLEEPING AT THIS TIME, NO APPARENT DISTRESS. RESPIRATIONS EVEN AND UNLABORED, 6L VIA NC IN PLACE.
--- NOTE | 2021-01-07 05:15 | NUR ---
BLOOD DRAWN FOR MORNING LABS FROM LEFT AC IV. PT SLEEPING, BUT EASILY ROUSABLE. DENIES DISCOMFORT. TIPPED ONTO LEFT SIDE WITH PILLOWS. MORRIS EMPTIED.
--- NOTE | 2021-01-07 07:34 | NUR ---
REPORT RECEIVED FROM KENNY BLAKE. PT RESTING IN BED WITH EYES CLOSED. O2 AT 92% ON 6L O2 BY NC. RESPIRATIONS EVEN, SHALLOW, BUT UNLABOED. PT ALLOWED TO REST. CALL LIGHT WITHIN REACH. BED RAILS UP.
--- NOTE | 2021-01-07 09:00 | NUR ---
MORNING ASSESSMENT AND MEDICATION DUE. PT RESTING IN BED WITH EYES CLOSED. AWAKENS TO VOICE. PT ALERT AND ORIENTED TO ALL. REPORS 8/10 PAIN BACK WITH A BASELINE OF 6-7/10. SEE MAR FOR MEDICATON GIVEN. PT DENIES NAUSEA. 1 PERSON ASSIST UP TO CHAIR. PT SHUFFLES, BUT IS ABLE TO REPOSITION SELF. OXGYEN SATRUATIONS REMAIN ABOVE 90% ON 5L O2 BY NC. CLEAR LIQUIDS PROIVDED, BLOOD SUGAR 83, REGULAR JELLOW AND JUICE GIVEN. PT DENIES ADDITIONAL REQUESTS OR COMPLAINTS. CALL LIGHT WITHIN REACH. PT REMAINS UP TO CHAIR, EATING JELLOW AND FLUIDS. MORRIS CATHETER SECURMENT DEVICE APPLIED.
--- NOTE | 2021-01-07 11:06 | NUR ---
PS HEART RATE REMAINS ELEVATED. MD AWARE. NEW MEDICATION ORDERS. PRN IV DOES OF METOPROLOL GIVEN, WILL REASSESS IN 30 MINUTES AND GIVE LONG ACTING HOME DOES. PT REPORTS 7 PAIN AND REQUESTS ADDITIONAL PAIN MEDICAITONS. PT ADVISED THAT HIS MORPHINE BREAKTHROGH PAIN DOSE IS EVERY 3 HOURS. PT STATES HE CAN WAIT UNTIL NEXT DUE TIME FOR MORPHINE. OXGYEN SAURATIONS REMAINS 94-96% ON 5L O2 BY NC. PT WEANED TO 4 L AND MAINTAINS OXGYEN SATURATIOSN ABOVE 90%. PT REPORTS HE WOULD LIKE TO REMAIN UP TO THE CHAIR. NO ADDITIONAL REQUESTS OR COMPLAINS. CALL LIGHT WITHIN REACH.
--- NOTE | 2021-01-07 11:30 | NUR ---
HEART RATE REMAINS ABOVE 100, SUSTAINING BETWEEN 100-120'S. EXTENDED RELEASE METOPROLOL GIVEN. PT REMAINS UP TO CHAIR. REQUESTS FOOD FOR LUNCH. CONTINUES TO REPORT LOWER BACK PAIN AT 7/10. NO ADDITIONAL REQUESTS OR COMPLAINTS. CALL LIGHT WITHIN REACH.
--- NOTE | 2021-01-07 12:10 | NUR ---
NOON ASSESSMENT AND MEDICATION DUE. PT REMAINS UP TO CHAIR. REPORTS 7/10 BACK PAIN AND REQUESTS MEDICATION, SEE MAR FOR MEDICAITON GIVEN. DRESSING TO LEFT HAND/FORARM IV SOILED AND LOOSE. DRESSING CHANGED PER PROTOCOL. PT REMAINS ALERT AND ORIENTED ALTHOUGH FORGETFUL AT TIMES. REPORTS MILD WEAKNESS TO LOWER EXTREMITIES. CRACKELS HEARD IN LEFT SIDE OF LUNG AND RIGHT LOWER LOBE. COUGH AND DEEP BREATHING ENCOUARGED. OXGYEN SATRUTATIONS REMAINS ABOVE 90%, 95% AT THIS TIME. PT WEANED TO 3L O2 BY NC TOLERATING WELL WITH OXGYEN SATURATIONS REMAINING ABOVE 90%. PT REMAINS TACHYCARDIA WITH HEART RATE 100-115. REDENESS TO COCCYX CONTINUES. BLACHABEL AROUND EDGES, ALLEVYN APPLIED. STAND BY ASSIST BACK TO BED TO REST. KYPHOSIS SUPPORTED WITH PILLOWS. PT DENIES ADDITIONAL REQUESTS OR COMPLAINTS. CALL LIGHT WITHIN REACH. BED RAILS UP.
--- NOTE | 2021-01-07 12:52 | NUR ---
MED REC COMPLETE
--- NOTE | 2021-01-07 13:43 | NUR ---
THIS RN TO ROOM TO CHECK ON PT. PT RESTING IN BED WITH EYES CLOSED. RR=12, OXGYEN SATURATION 93% ON 3L O2 BY NC. PT ALLOWED TO REST, CALL LIGHT WITHIN REACH. BED RAILS UP.
--- NOTE | 2021-01-07 14:20 | NUR ---
REPORT CALLED TO KENNY MATOS. PT TO TRANSFER TO MED/SURG SOON.
--- NOTE | 2021-01-07 14:28 | NUR ---
SHAWNA, ARRIVED TO TRANSFER PT TO MED/SURG. PT TRANSFERED BY BED. PT REMAINS ON 3L O2 BY NC FOR TRANSFER. ALL BELONGINGS WITH PT.
--- NOTE | 2021-01-07 15:02 | NUR ---
PT ARRIVED TO FLOOR VIA BED TO ROOM 115. PT IS SLEEPING ON AND OFF BUT ANSWERS QUESTIONS APPROPRIATLY. 3L NC IN PLACE. VITALS TAKEN AND STABLE. ASSESSMENT COMPLETED AND DOCUMENTED. TELE [address] CALL LIGHT IN REACH. DENIES PAIN. NO FURTHER NEEDS.
--- NOTE | 2021-01-07 17:41 | NUR ---
ROUNDED ON PT. ASSSITED UP TO CHAIR FOR DINNER. CALL LIGHT IN REACH. VITALSW AND I'S AND O'S COMPLETED. PT DENIES PAIN OR NEEDS.
--- NOTE | 2021-01-07 18:19 | NUR ---
ROUNDED ON PT. PT EATING DINNER. ABLE TO EAT ALL PUDDING AND MASHED POTATOS. TITRATED O2 TO 2L NC. SPO2 AT 90%. CALL LIGHT IN REACH. PT REQUESTING TO TSTAY UP IN CHAIR.
--- NOTE | 2021-01-07 18:27 | NUR ---
Pt was transferred to the floor today. No change in plan for dc to go home with daughter.
--- NOTE | 2021-01-07 18:50 | NUR ---
UPDATE PROVIEDED TO DAUGHTER LENNY OVER THE PHONE. LET HER KNOW HER DAD HAS MOVED TO MEDICAL FLOOR AND IS DOING WELL, NEEDING LESS OXYGEN.
--- NOTE | 2021-01-07 19:42 | NUR ---
Shift report received from KENNY Miller. Pt resting in bed safely w/ call light in reach, a bedside. Pt denies any needs at this time, whiteboard updated.
--- NOTE | 2021-01-07 19:44 | NUR ---
Shift report received from KENNY Miller. Pt sitting up in chair w/ call light in reach. Pt denies any needs at this time, whiteboard updated.
--- NOTE | 2021-01-07 20:30 | NUR ---
1PA FROM CHAIR TO BED. PT RESTING SAFELY IN BED W/ CALL LIGHT IN REACH. EVENING ASSESMENT COMPLETE, NO SLIDING SCALE INSULIN NEEDED CBG WAS IN RANGE PER PROVIDER ORDERS. PT DENIES AND SOB, PAIN, OR ANY OTHER NEEDS AT THIS TIME. O2 SATS 91-92% ON 2L VIA NC.
--- NOTE | 2021-01-07 22:32 | NUR ---
Pt resting safely w/ call light in reach and eyes closed, RR even and unlabored.
--- NOTE | 2021-01-08 00:07 | NUR ---
Pt resting in bed safely w/ call light in reach and eyes closed, RR even and unlabored.
--- NOTE | 2021-01-08 02:13 | NUR ---
Pt resting safely in bed w/ call light in reach and eyes closed, RR even and unlabored.
--- NOTE | 2021-01-08 04:33 | NUR ---
Pt resting in bed safely w/ call light in reach and eyes closed, RR even and unlabored.
--- NOTE | 2021-01-08 05:18 | NUR ---
IN TO GET VITALS, ADJST TELE SETTING TO READ SPO2, SIPS OF WATER PROVIDED, NO FURTHER NEEDS AT THIS CHRISTOPH, MORRIS CATH EMPTIED AND CATH CARE COMPLETE,
--- NOTE | 2021-01-08 06:48 | NUR ---
Pt slept through the night/shift. No s/sx of respiratory distress, O2 sats 90% on 2L via NC. AM labs drawn this morning from LAC IV site. Pt c/o pain this am in back, PRN IV pain medication given per provider order. Pt w/ sufficient fluid intake and urine output. Pt A+O x3 call appropriately.
--- NOTE | 2021-01-08 08:00 | NUR ---
In to see pt for morning assessment. Patient noted to have blood sugar of 54. Patient awake and able to eat/drink. Cup of orange juice provided, pt tolerated well. Blood sugar repeat after fifteen minutes, now 51. Patient continuing to eat breakfast, a&ox3. Dextrose 50% IVP admin per protocol. Blood sugar 76 after fifteen minute check post dextrose admin. Patient doing well, sitting up eating breakfast and denies any distress or needs. Will continue to monitor.
--- NOTE | 2021-01-08 08:18 | NUR ---
PRIMARY NURSE REPORTING BLOOD SUGAR FROM 54 DOWN TO 51 AFTER FEEDING. D50 25ML TO BE ADMISNTERED. DR BARRAGAN UPDATED ON PLACE.
--- NOTE | 2021-01-08 08:41 | NUR ---
Patient vitals were done by RN, I&Os are complete. Patient is still eating breakfast independently, but will take a bit more time to finish. Call light is in reach.
--- NOTE | 2021-01-08 10:26 | NUR ---
Patient is + Covid-19. He is on a 60 gram consistent carb, 2 gm sodium soft diet. He is able to eat independently but needs soft foods due to no teeth. If less than 50% of a meal is eaten, offer Ensure High Protein (lower carb Ensure) for additional calories, protein, and vitamins/minerals.
--- NOTE | 2021-01-08 11:10 | NUR ---
Morphine 2mg IVP admin for reports of back pain.
--- NOTE | 2021-01-08 11:30 | NUR ---
Called and spoke with RN as pt is unable to speak on the phone with me. She will get his daughters phone number. Daughter, Yudi, returned phone call 15 minutes later. She has questions about pts 0xygen. She states pt was on oxygen in [place]. He did not qualify when they moved to [place]. Daughter feels he needs o2. Explained about 02 qualifier and need to have completed on day of discharge. If pt qualifies for 02 I will make sure it is ordered and set up for pt. She states she, son, and boyfriend have all been sick with Covid. She cont. to feel very ill. She is concerned pt will discharge over the weekend. Discussed this is up to the Dr. She also states concern for transport. States she cannot come into the hospital as she is not off isolation. She does state she could pick him up is needed and not get out of the car. We again discussed, I am unsure of dc date as this will be up to the Dr. She would like [facility], if pt needs o2 on discharge. I spoke with Dr. Chodwhury and she states there is a possibilty pt may dc before next . Called [employer] and they would like a face sheet and H&P. Their [employer] school physical education teacher staff can deliver 02 if needed over the holiday weekend if pt discharges. I will leave written instruction for staff, in case pt discharges and needs 02.
--- NOTE | 2021-01-08 11:50 | NUR ---
Patient bedbath is complete, but the patient refused a shower cap. Patient is sleeping with call light in reach. Lunch, dinner, and tommorow's breakfast was ordered. There are no requests at this time.
--- NOTE | 2021-01-08 14:42 | NUR ---
REPORT RECEIVED CARE ASSUMED. PT SITTING UP IN BED EATING FRUIT AGREES HE IS COMFORTABLE DENIES FURTHER NEEDS OF. [address] CALL LIGHT IN HAND
--- NOTE | 2021-01-08 15:46 | NUR ---
Patient has not has a BM yet. RN will be notified. Vitals, I&Os are complete and patient has no other request than a non-diet pepsi to be ordered. Call light is in reach. There are no other requests at this time.
--- NOTE | 2021-01-08 17:04 | NUR ---
PT CONTINUES UP IN BED, EVENING MEAL SERVED. DENIES NEEDS, SOB, OR OTHER DISCOMFORTS. CALL LIGHT AND NEEDED ITEMS IN REACH PT ENCOURAGED TO CALL FOR ANY REASON
--- NOTE | 2021-01-08 19:10 | NUR ---
SHIFT REPORT FROM NURSE HOUSTON. PT IS UP IN CHAIR, WOULD LIKE TO MAKE A PHONE CALL. LYNETTE MARCANO IS SUITING UP TO GO IN ROOM TO ASSIST PT. WILL RETURN WITH EVENING MEDS.
--- NOTE | 2021-01-08 21:45 | NUR ---
IN ROOM FOR MEDS AND ASSESSMENT. PT IS STILL UP IN CHAIR; RETURNS TO BED. MORRIS CARE PERFORMED. VSS. SPO2 94-96% ON 2L NC. ALLEVYN ON COCCYX CDI. BLE EDEMATOUS 1+, SOME SEEPING, CHRONIC DISCOLORATION UP TO MIDCALF/KNEE. CMS INTACT. PILLOW UNDER LT HIP TO POSITION PT OFF OF COCCYX. PT REPORTS PAIN IN HIS BACK; 11/14. WILL RETURN WITH PRN MORPHINE. NO COUGHING NOTED WHILE THIS RN IN ROOM. LEGS ELEVATED WITH PILLOW.
--- NOTE | 2021-01-08 22:00 | NUR ---
BACK IN ROOM TO ADMINISTER PRN MORPHINE AND MELATONIN. PT WOULD LIKE TO CONTINUE WATCHING TV. CALL LIGHT AND BEDSIDE TABLE WITHIN REACH. NO FURTHER NEEDS AT THIS TIME.
--- NOTE | 2021-01-09 01:00 | NUR ---
checked on pt. pt appears to be sleeping with eyes closed, even unlabored breathing noted. call light within reach.
--- NOTE | 2021-01-09 04:00 | NUR ---
IN ROOM TO REPOSITION PT. PT AWAKES TO MOVEMENT IN ROOM. PT DENIES NEEDS AT THIS TIME. CALL LIGHT WITHIN REACH.
--- NOTE | 2021-01-09 05:59 | NUR ---
IN ROOM FOR MORNING ASSESSMENT, VITALS, I&OS. WITH HELP FROM LYNETTE ANN, PT BOOSTED UP IN BED, REPOSITIONED. PT REPORTS PAIN 7-8/10 IN BACK AND REQUESTS PRN PAIN MEDS. 15MG PRN MORPHINE PO ADMINISTERED AT THIS TIME. LUNG SOUNDS DIM BUT CLEAR, SBP IS LOW AT 91. SPO2 ON 2L CURRENTLY 90%; THE NC HAD FALLEN AWAY FROM THE PT'S NOSE AND SPO2 ON RA WAS 88%. PT DENIES FURTHER NEEDS AT THIS TIME. CALL LIGHT WITHIN REACH.
--- NOTE | 2021-01-09 07:12 | NUR ---
REPORT RECEIVED FROM KENNY DICKINSON. PT RESTING IN BED WITH EYES CLOSED, RESPIRATIONS EVEN AND UNLABORED. PT ALLOWED TO REST. BED RAILS UP. CALL LIGHT WITHIN REACH. MESSAGED REGARDING ONGOING NEED FOR MORRIS CATHETER, AWAITING RESPONSE.
--- NOTE | 2021-01-09 08:15 | NUR ---
MORNING ASSESSMENT AND MEDICATION DUE. PT RESTING IN BED WITH EYES CLOSED. PT AWAKENS TO VOICE AND MOVEMENT IN ROOM. STAND BY ASSIST WITH FRONT WHEEL WALKER UP TO CHAIR FOR BREAKFAST. SEVERE KYPHOSIS BUT PT ABLE TO USE WALKER APPROPRIATLY AND AMBULATE UP TO CHAIR WITH STAND BY ASSIST. PT DECLINES BREAKFAST AND ASKS FOR NEW ORDER. NEW BREAKFAST ORDER PLACED. PT REPORTS 7/10 PAIN AND REPORTS THIS IS HIS BASELINE, DENIES NEED FOR PAIN MEDICAITON AT THIS TIME. LUNG SOUNDS CLEAR IN UPPER LOBES AND RIGHT LOWER LOBE. CRACKELS NOTED IN LEFT LOWER LOBE. I.S. PROVIDED, EDUCATION DONE. PT DEMONSTRATES UNDERSTANDING REACHING 750ML X5. NO LORIE ORBITAL EDENA NOTED. EDEMA CONTINUES IN LOWER LEGS, RIGH THAND, AND SCTOTEM. ALLEVYN TO COCCYX SOILED. LORIE CARE DONE. NEW ALLEVYN APPLIED. MORRIS CATHETER DC'D PER MD ORDER. PO FLUIDS ENCORUAGED. MEDICATIONS GIVEN. NO ADDITIONAL REQEUSTS OR COMPLAINTS. CALL LIGHT WITHIN REACH. NEW BREAKFAST TRAY ARRIVED. PT EATING BREAKFAST. CALL LIGHT WIHTIN REACH.
--- NOTE | 2021-01-09 10:27 | NUR ---
THIS RN TO ROOM TO CHECK ON PT. PT REMAINS UP TO CHAIR. HAS REMOVED OXGYEN TUBING FROM NOSE. PT ASSISTED WITH PLACING OXYGEN BACK INTO NOSE AND EDUCATION DONE. PT VERBALIES UNDERSTANDING TO LEAVE OXGYEN IN PLACE. OXGYEN SATURATIONS 88% WITH OXGYEN NOT IN PLACE. RISES TO 91% ON 2L O2 BY NC. PUMP ALARMING, INFUSION AND FLUSH COMPLETE. IV SALINE LOCKED, ALCOHOL CAP APPLIED. RT TO BEDSIDE FOR HOME OXYGEN TRIAL. PT DENIES ADDITIONAL REQUESTS OR COMPLAINTS. CALL LIGHT WITHIN REACH.
--- NOTE | 2021-01-09 11:30 | NUR ---
PT AWAKE IN CHAIR. PT ON THE PHONE WITH FAMILY. FAMILY PHONE NUMBERS WRITTEN ON BOARD BY THIS DIETARY AIDE. CALL LIGHT WITHIN REACH. NO FURTHER NEEDS AT THIS TIME.
[2021-01-09] MEDS ORDERED: DEXAMETHASONE6 MG PO (11:45)
--- NOTE | 2021-01-09 12:10 | NUR ---
LUNCH DELIVERED. PT UP TO CHAIR TO EAT. STAND BY ASSIST UP WITH FWW TO ATTEMPT TO VOID. PT UNABLE TO VOID AT THIS TIME. WATER AND GRAPE JUICE PROVIDED PER PT REQUEST. ORAL FLUIDS ENCOURAGED. PT DENIES ADDITIONAL REQUESTS OR COMPLAINTS. OXYGEN SATURATION 92% ON 3L O2 BY NC PER RT. CALL LIGHT WITHIN REACH.
--- NOTE | 2021-01-09 13:00 | NUR ---
THIS RN TO ROOM TO CHECK ON PT. PT RESTING IN CHAIR WITH EYES CLOSED. RESPIRATIONS EVEN AND UNLABORED. CPOX SHOWS 92% ON 3L O2 BY NC. PT ALLOWED TO REST. CALL BARBRA ORDONEZ. CODY, PTS DAUGHTER CALLED, AND UPDATED ON PLAN FOR DISCHARGE, CODY VERBALIZES UNDERSTANDING AND STATES HER QUESTIONS HAVE BEEN ANSWERED.
--- NOTE | 2021-01-09 14:26 | NUR ---
PT UP TO BATHROOM AND UNMEASURED VOID NOTED. PT USING WALKER AND GAIT SLOW. VSS. TWO PRESSURE DRESSING NOTED. PT BACK TO CHAIR AND DRINKING GRAPE JUICE PER REQUEST.
--- NOTE | 2021-01-09 14:41 | NUR ---
KENNY CLAYTON REPORTS PT WAS UP TO VOID, "ONLY A SMALL AMOUNT." PLANING MACHINE OPERATOR TO BEDSIDE TO BLADDER SCAN.
--- NOTE | 2021-01-09 15:50 | NUR ---
PT READY FOR DISCHRAGE. CODY STATES SHE CAN PIT PT UP AT 1615. STAND BY ASSIST WITH FWW UP TO RESTROOM. PT VOIDS 300ML CLEAR YELLOW URINE WITH OUT ISSUE. LORIE CARE DONE PER PT. DEPENDS PROVIDED FOR PT PT HAS ONLY DIRTY HOME CLOTHING TO WEAR. PT DRESSED WITH 1 PERSON ASSISTANCE IN HOSPITAL SCRUBS, SOCKS AND GOWN. STAND BY ASSIST WITH FWW BACK TO CHAIR. IV DC'D PER PROTOCOL, GAUZE AND COBAN APPLIED. DISCHARGE INSTRUCTIONS, MEDICATIONS, FOLLOW UP, AND HOME OXYGEN USE REVIEWED WITH PT WITH CODY ON THE SPEAKER PHONE. BOTH CODY AND PT STATE THEIR QUESTIONS HAVE BEEN ANSWERED AND VERBALIZE UNDERSTANDING OF ALL INSTRUCTIONS. PT TRANSFERS SELF TO WHEELCHAIR USING FWW. NO ADDITIONAL REQUESTS OR COMPLAINTS. PT WHEELED FROM MED/SURG BY THIS RN.
== END 2021-01-09 16:20 | disposition home or self-care (01) | DRG 177 ==
LOC: ED 15:41 → CCU 19:30 → MS 01-07 14:55
PROVIDERS: ADMIT Internal Medicine; ATTEND Internal Medicine
PROC: 5A09357 Assistance with Respiratory Ventilation, Less than 24 Consecutive Hours, Continuous Positive Airway Pressure (ICD-10-PCS; principal; 2021-01-05)
PROC: 8E0ZXY6 Isolation (ICD-10-PCS; 2021-01-05)
PROC: 3E0333Z Introduction of Anti-inflammatory into Peripheral Vein, Percutaneous Approach (ICD-10-PCS; 2021-01-05)
PROC: XW033E5 Introduction of Remdesivir Anti-infective into Peripheral Vein, Percutaneous Approach, New Technology Group 5 (ICD-10-PCS; 2021-01-05)
DX: U07.1 COVID-19 (principal); J96.01 Acute respiratory failure with hypoxia; J12.82 Pneumonia due to coronavirus disease 2019; I50.23 Acute on chronic systolic (congestive) heart failure; J44.0 Chronic obstructive pulmonary disease with (acute) lower respiratory infection; E27.40 Unspecified adrenocortical insufficiency; I48.20 Chronic atrial fibrillation, unspecified; E11.9 Type 2 diabetes mellitus without complications; G25.81 Restless legs syndrome; G89.4 Chronic pain syndrome; F31.9 Bipolar disorder, unspecified; Z79.52 Long term (current) use of systemic steroids; Z91.030 Bee allergy status; Z98.890 Other specified postprocedural states; Z79.01 Long term (current) use of anticoagulants; Z79.899 Other long term (current) drug therapy; Z79.84 Long term (current) use of oral hypoglycemic drugs
CPT/HCPCS: 51702; 71045; 80053; 80500; 81001; 82803; 83735; 84484; 85007; 85025; 85610; 93005; 93010; 94640; 94660; 94760; 94761; 99285-25; A9270; C9113; C9803; J1100; J1160; J1815; J1940; J2270; J7050; U0003

== ENCOUNTER 2021-01-18 11:10 | Emergency (ER) | payer MEDICARE ==
[~2021-01-18] VITALS: Ht 175.3 cm; Wt 80.7 kg
[~2021-01-18 11:10] MED LIST changes: +CLONIDINE HCL0.1 MG PO; +DEXAMETHASONE6 MG PO; +FENTANYL; +HYDROMORPHO
--- OUTSIDE RECORDS SUMMARY | 2021-01-18 11:12 | XMS ---
PreManage Notification: ALEXANDRIA POLLOCK Security Appliance Service Supervisor Events No recent Security Events currently on file CRITERIA MET - [facility] - 2 Visits in 30 Days [facility] PHONE: [phone] Nadir has no Care Guidelines for this patient. Daphney VISIT COUNT (12 MO.) [address] [place] [address] TOTAL 4 NOTE: Visits indicate total known visits. ED/UCC VISIT TRACKING (12 MO.) 01/18/2021 11:10 [facility] TYPE: Emergency COMPLAINT: - COVID+/WEAKNESS/URINE PROBLEM 01/05/2021 15:41 [facility] TYPE: Emergency COMPLAINT: - WEAKNESS 10/21/2020 16:46 [facility] TYPE: Emergency COMPLAINT: - CELLULITIS DIAGNOSES: - rat exterminator (current) use of opiate analgesic - Other intermediate teacher (current) drug therapy - Bee allergy status - Unspecified atrial fibrillation - Personal history of nicotine dependence - Cellulitis of left lower limb - halfway (current) use of anticoagulants - halfway (current) use of oral hypoglycemic drugs 04/24/2020 09:17 [facility] TYPE: Emergency COMPLAINT: - WEAKNESS, VOMITING INPATIENT VISIT TRACKING (12 MO.) 01/05/2021 19:30 [facility] TYPE: Medical Surgical COMPLAINT: - ACUTE RESPIRATORY FAILURE DIAGNOSES: - Acute on chronic systolic (congestive) heart failure - Chronic obstructive pulmonary disease with (acute) lower respiratory infection - rat exterminator (current) use of anticoagulants - Chronic atrial fibrillation, unspecified - Type 2 diabetes mellitus without complications - Restless legs syndrome - Chronic obstructive pulmonary disease with (acute) lower respiratory infection - Unspecified adrenocortical insufficiency - rat exterminator (current) use of anticoagulants - Chronic pain syndrome - Bee allergy status - Unspecified adrenocortical insufficiency - Other specified postprocedural states - Chronic atrial fibrillation, unspecified - halfway (current) use of oral hypoglycemic drugs - Restless legs syndrome - Acute on chronic systolic (congestive) heart failure - Acute respiratory failure with hypoxia - Type 2 diabetes mellitus without complications - Acute respiratory failure with hypoxia - Other intermediate teacher (current) drug therapy - halfway (current) use of systemic steroids - Bipolar disorder, unspecified - Bee allergy status - halfway (current) use of oral hypoglycemic drugs - Chronic pain syndrome - halfway (current) use of systemic steroids - COVID-19 - Other specified postprocedural states - Bipolar disorder, unspecified - Other intermediate teacher (current) drug therapy 04/24/2020 15:16 [facility] TYPE: Medical [...] limb - Bipolar disorder, unspecified - Other intermediate teacher (current) drug therapy - halfway (current) use of opiate analgesic - Other chronic pain - Personal history of nicotine dependence - halfway (current) use of anticoagulants - halfway (current) use of oral hypoglycemic drugs - Other chronic pain - Personal history of nicotine dependence - Low back pain - Bipolar disorder, unspecified - Heart failure, unspecified - halfway (current) use of systemic steroids - Contact with and (suspected) exposure to other viral communicable diseases - Cellulitis of right lower limb - Other chcf (current) drug therapy - Acute kidney failure, unspecified - Heart failure, unspecified - Unspecified atrial fibrillation - Low back pain - Dehydration - halfway (current) use of systemic steroids - Unspecified adrenocortical insufficiency - halfway (current) use of anticoagulants - Acute kidney failure, unspecified - Unspecified atrial fibrillation - halfway (current) use of oral hypoglycemic drugs - rat exterminator (current) use of opiate analgesic [email or web address]
[2021-01-18] MEDS ORDERED: FLOMAX0.4 MG PO (18:05)
== END 2021-01-18 19:10 | disposition home or self-care (01) ==
LOC: ED 11:10
DX: R53.1 Weakness (principal); R33.9 Retention of urine, unspecified; I48.91 Unspecified atrial fibrillation; J44.9 Chronic obstructive pulmonary disease, unspecified; Z79.01 Long term (current) use of anticoagulants; Z91.030 Bee allergy status; Z79.899 Other long term (current) drug therapy; Z79.84 Long term (current) use of oral hypoglycemic drugs
CPT/HCPCS: 51702; 71045; 80053; 81001; 83605; 83880; 84484; 85025; 85610; 99285-25; J7121

== ENCOUNTER 2021-01-22 17:28 | Emergency (ER) | payer MEDICARE ==
[~2021-01-22] VITALS: Ht 175.3 cm; Wt 80.7 kg
[~2021-01-22 17:28] MED LIST changes: +FLOMAX0.4 MG PO
--- OUTSIDE RECORDS SUMMARY | 2021-01-22 17:30 | XMS ---
PreManage Notification: ALEXANDRIA POLLOCK Security Clinical Biochemist Events No recent Security Events currently on file CRITERIA MET - [facility] - 2 Visits in 30 Days [facility]Current PHONE: [phone] Nadir has no Care Guidelines for this patient. Daphney VISIT COUNT (12 MO.) [address] [place] [address] TOTAL 5 NOTE: Visits indicate total known visits. ED/UCC VISIT TRACKING (12 MO.) 01/22/2021 17:28 [facility] TYPE: Emergency COMPLAINT: - ABNORMAL LABS 01/18/2021 11:10 [facility] TYPE: Emergency COMPLAINT: - COVID+/WEAKNESS/URINE PROBLEM DIAGNOSES: - senior living (current) use of oral hypoglycemic drugs - senior living (current) use of anticoagulants - Chronic obstructive pulmonary disease, unspecified - Weakness - Retention of urine, unspecified - Other equipment operator intermodal yard (current) drug therapy - Bee allergy status - Unspecified atrial fibrillation 01/05/2021 15:41 [facility] TYPE: Emergency COMPLAINT: - WEAKNESS 10/21/2020 16:46 [facility] TYPE: Emergency COMPLAINT: - CELLULITIS DIAGNOSES: - senior living (current) use of opiate analgesic - Other usp (current) drug therapy - Bee allergy status - Unspecified atrial fibrillation - Personal history of nicotine dependence - Cellulitis of left lower limb - termite control representative (current) use of anticoagulants - termite control representative (current) use of oral hypoglycemic drugs 04/24/2020 09:17 [facility] TYPE: Emergency COMPLAINT: - WEAKNESS, VOMITING INPATIENT VISIT TRACKING (12 MO.) 01/05/2021 19:30 [facility] TYPE: Medical Surgical COMPLAINT: - ACUTE RESPIRATORY FAILURE DIAGNOSES: - Acute on chronic systolic (congestive) heart failure - Chronic obstructive pulmonary disease with (acute) lower respiratory infection - senior living (current) use of anticoagulants - Chronic atrial fibrillation, unspecified - Type 2 diabetes mellitus without complications - Restless legs syndrome - Chronic obstructive pulmonary disease with (acute) lower respiratory infection - Unspecified adrenocortical insufficiency - termite control representative (current) use of anticoagulants - Chronic pain syndrome - Bee allergy status - Unspecified adrenocortical insufficiency - Other specified postprocedural states - Chronic atrial fibrillation, unspecified - termite control representative (current) use of oral hypoglycemic drugs - Restless legs syndrome - Acute on chronic systolic (congestive) heart failure - Acute respiratory failure with hypoxia - Type 2 diabetes mellitus without complications - Acute respiratory failure with hypoxia - Other usp (current) drug therapy - senior living (current) use of systemic steroids - Bipolar disorder, unspecified - Bee allergy status - termite control representative (current) use of oral hypoglycemic drugs - Chronic pain syndrome - senior living (current) use of systemic steroids - COVID-19 - Other specified postprocedural states - Bipolar disorder, unspecified - Other usp (current) drug therapy 04/24/2020 15:[address] [facility] TYPE: Medical Surgical COMPLAINT: - HYPOKALEMIA [...] limb - Bipolar disorder, unspecified - Other equipment operator intermodal yard (current) drug therapy - senior living (current) use of opiate analgesic - Other chronic pain - Personal history of nicotine dependence - termite control representative (current) use of anticoagulants - senior living (current) use of oral hypoglycemic drugs - Other chronic pain - Personal history of nicotine dependence - Low back pain - Bipolar disorder, unspecified - Heart failure, unspecified - senior living (current) use of systemic steroids - Contact with and (suspected) exposure to other viral communicable diseases - Cellulitis of right lower limb - Other usp (current) drug therapy - Acute kidney failure, unspecified - Heart failure, unspecified - Unspecified atrial fibrillation - Low back pain - Dehydration - termite control representative (current) use of systemic steroids - Unspecified adrenocortical insufficiency - termite control representative (current) use of anticoagulants - Acute kidney failure, unspecified - Unspecified atrial fibrillation - senior living (current) use of oral hypoglycemic drugs - termite control representative (current) use of opiate analgesic [email or web address]
== END 2021-01-22 20:25 | disposition home or self-care (01) ==
LOC: ED 17:28
DX: R79.1 Abnormal coagulation profile (principal); I48.91 Unspecified atrial fibrillation; Z91.038 Other insect allergy status; Z79.899 Other long term (current) drug therapy; Z79.84 Long term (current) use of oral hypoglycemic drugs
CPT/HCPCS: 80053; 85025; 85610; 85730; 99283

== ENCOUNTER 2021-02-02 14:36 | Emergency (ER) | payer MEDICARE ==
[~2021-02-02] VITALS: Ht 175.3 cm; Wt 80.7 kg
--- OUTSIDE RECORDS SUMMARY | 2021-02-02 15:02 | XMS ---
PreManage Notification: ALEXANDRIA POLLOCK Security Institution Director Events No recent Security Events currently on file CRITERIA MET - [facility] - 2 Visits in 30 Days [facility]Current PHONE: [phone] Nadir has no Care Guidelines for this patient. Daphney VISIT COUNT (12 MO.) [address] [place] [address] TOTAL 6 NOTE: Visits indicate total known visits. ED/UCC VISIT TRACKING (12 MO.) 02/02/2021 14:37 [facility] TYPE: Emergency COMPLAINT: - FEVER 01/22/2021 17:28 [facility] TYPE: Emergency COMPLAINT: - ABNORMAL LABS DIAGNOSES: - terminal operator (current) use of oral hypoglycemic drugs - Unspecified atrial fibrillation - Other insect allergy status - Abnormal coagulation profile - Other terminal operator (current) drug therapy 01/18/2021 11:10 [facility] TYPE: Emergency COMPLAINT: - COVID+/WEAKNESS/URINE PROBLEM DIAGNOSES: - alf (current) use of oral hypoglycemic drugs - alf (current) use of anticoagulants - Chronic obstructive pulmonary disease, unspecified - Weakness - Retention of urine, unspecified - Other retirement (current) drug therapy - Bee allergy status - Unspecified atrial fibrillation 01/05/2021 15:41 [facility] TYPE: Emergency COMPLAINT: - WEAKNESS 10/21/2020 16:46 [facility] TYPE: Emergency COMPLAINT: - CELLULITIS DIAGNOSES: - terminal operator (current) use of opiate analgesic - Other terminal operator (current) drug therapy - Bee allergy status - Unspecified atrial fibrillation - Personal history of nicotine dependence - Cellulitis of left lower limb - terminal operator (current) use of anticoagulants - terminal operator (current) use of oral hypoglycemic drugs 04/24/2020 09:17 [facility] TYPE: Emergency COMPLAINT: - WEAKNESS, VOMITING INPATIENT VISIT TRACKING (12 MO.) 01/05/2021 19:30 [facility] TYPE: Medical Surgical COMPLAINT: - ACUTE RESPIRATORY FAILURE DIAGNOSES: - Acute on chronic systolic (congestive) heart failure - Chronic obstructive pulmonary disease with (acute) lower respiratory infection - alf (current) use of anticoagulants - Chronic atrial fibrillation, unspecified - Type 2 diabetes mellitus without complications - Restless legs syndrome - Chronic obstructive pulmonary disease with (acute) lower respiratory infection - Unspecified adrenocortical insufficiency - alf (current) use of anticoagulants - Chronic pain syndrome - Bee allergy status - Unspecified adrenocortical insufficiency - Other specified postprocedural states - Chronic atrial fibrillation, unspecified - terminal operator (current) use of oral hypoglycemic drugs - Restless legs syndrome - Acute on chronic systolic (congestive) heart failure - Acute respiratory failure with hypoxia - Type 2 diabetes mellitus without complications - Acute respiratory failure with hypoxia - Other retirement (current) drug therapy - terminal operator (current) use of systemic steroids - Bipolar disorder, unspecified - Bee allergy status - alf (current) use of oral hypoglycemic drugs - Chronic pain syndrome - terminal operator (current) use of systemic steroids - COVID-19 - Other specified postprocedural states - Bipolar disorder, unspecified - Other terminal operator (current) drug therapy 04/24/2020 15:16 [facility] [...] limb - Bipolar disorder, unspecified - Other terminal operator (current) drug therapy - alf (current) use of opiate analgesic - Other chronic pain - Personal history of nicotine dependence - alf (current) use of anticoagulants - terminal operator (current) use of oral hypoglycemic drugs - Other chronic pain - Personal history of nicotine dependence - Low back pain - Bipolar disorder, unspecified - Heart failure, unspecified - terminal operator (current) use of systemic steroids - Contact with and (suspected) exposure to other viral communicable diseases - Cellulitis of right lower limb - Other retirement (current) drug therapy - Acute kidney failure, unspecified - Heart failure, unspecified - Unspecified atrial fibrillation - Low back pain - Dehydration - terminal operator (current) use of systemic steroids - Unspecified adrenocortical insufficiency - alf (current) use of anticoagulants - Acute kidney failure, unspecified - Unspecified atrial fibrillation - terminal operator (current) use of oral hypoglycemic drugs - terminal operator (current) use of opiate analgesic [email or web address]
--- NOTE | 2021-02-03 06:30 | EKG ---
[facility] [address] [place] [address] Signed Atrial fibrillation with rapid ventricular response with premature ventricular or aberrantly conducted complexes Inferior infarct , age undetermined Abnormal ECG When compared with ECG of 05-JAN-2021 15:51, ST now depressed in Anterior leads Confirmed by HEATH BERTRAND MD ([id number] on 02/03/2021 6:30:32 AM Electronically Signed By: HEATH BERTRAND MD 02/03/21 0630 PATIENT NAME: ALEXANDRIA POLLOCK Electrocardiogram DATE OF : 46 PHYSICIAN: HEATH BERTRAND MD REPORT #: [id number] REPORT IS CONFIDENTIAL AND NOT TO BE RELEASED WITHOUT AUTHORIZATION
== END 2021-02-02 18:41 | disposition hospice, home (50) ==
LOC: ED 14:36
DX: I48.91 Unspecified atrial fibrillation (principal); L89.154 Pressure ulcer of sacral region, stage 4; Z86.16 Personal history of COVID-19; Z91.030 Bee allergy status; Z79.01 Long term (current) use of anticoagulants; Z79.84 Long term (current) use of oral hypoglycemic drugs; Z79.899 Other long term (current) drug therapy
CPT/HCPCS: 71045; 80053; 81001; 83605; 85025; 85610; 93005; 93010; 96374; 99285-25; U0003